=== PATIENT | male | born 1945 | race Caucasian/White ===

== ENCOUNTER 2023-05-02 08:59 | Inpatient (IN) | payer MEDICARE, BC ==
[2023-05-02] MEDS ORDERED: SODIUM CHLORIDE 0.9% 1,000 ML IV STA (09:23)
[2023-05-02] MEDS ORDERED: KETOROLAC 15 MG/ML 1 ML VIAL IVP STA (09:23)
[2023-05-02] MEDS ORDERED: MORPHINE SULFATE 4 MG/ML SYRINGE IVP STA ×2 (09:24→11:59)
[2023-05-02 09:26] VITALS: PULSE 60
--- NOTE | 2023-05-02 09:30 | ED ---
Abdominal Pain HPI - General Chief Complaint: Abdominal Pain Stated Complaint: abd pain Time Seen by Provider: 05/02/23 09:07 Source: patient, EMS, RN notes reviewed Mode of arrival: EMS Limitations: no limitations - History of Present Illness Initial Comments: This is an 78-year-old male who presents to the emergency department for abdominal pain. States that last night he went into a coughing fit and noticed a large bulge in his abdomen, particularly the right upper quadrant area. The pain has since persisted, and he states that he is unable to bear it anymore. Denies any history of abdominal surgeries or hernias in the past. He has had mild nausea but no vomiting. He is still coughing, and he states that this has been present for 1.5 weeks. Denies any chest pain or shortness of breath. He is still passing gas and had a small bowel movement this morning. MD Complaint: abdominal pain - Related Data Home Medications Medication Instructions Recorded Confirmed Multivitamins, Thera [Multivitamin 1 tab PO HS 05/02/23 05/02/23 (formulary)] Rivaroxaban [Xarelto] 20 mg PO HS 05/02/23 05/02/23 Allergies Allergy/AdvReac Type Severity Reaction Status Date / Time No Known Allergies Allergy Verified 05/02/23 12:40 Review of Systems ROS Statement: Those systems with pertinent positive or pertinent negative responses have been documented in the HPI. ROS Other: All systems not noted in ROS Statement are negative. Past Medical History Past Medical History: Atrial Fibrillation, Diabetes Mellitus History of Any Multi-Drug Resistant Organisms: None Reported Past Surgical History: Heart Catheterization With Stent, Joint Replacement, Pacemaker Additional Past Surgical History / Comment(s): bilateral knee replacements Past Psychological History: No Psychological Hx Reported Smoking Status: Never smoker Past Alcohol Use History: Occasional Past Drug Use History: None Reported General Exam Limitations: no limitations General appearance: alert, in no apparent distress Head exam: Present: atraumatic, normocephalic, normal inspection Respiratory exam: Present: normal lung sounds bilaterally. Absent: respiratory distress, wheezes, rales, rhonchi, stridor Cardiovascular Exam: Present: regular rate, normal rhythm, normal heart sounds. Absent: systolic murmur, diastolic murmur, rubs, gallop, clicks GI/Abdominal exam: Present: other (Large bulge in the right upper quadrant with palpable tenderness. There is a small overlying area of ecchymosis.) Neurological exam: Present: alert, oriented X3, CN II-XII intact Psychiatric exam: Present: normal affect, normal mood Skin exam: Present: warm, dry, intact, normal color. Absent: rash Course Vital Signs 05/02/23 05/02/23 05/02/23 09:04 11:48 13:50 Temperature 98.3 F Pulse Rate 60 60 60 Respiratory 20 20 18 Rate Blood Pressure 125/91 159/77 151/79 O2 Sat by Pulse 98 97 100 Oximetry 05/02/23 14:30 Temperature Pulse Rate Respiratory Rate Blood Pressure O2 Sat by Pulse 100 Oximetry Medical Decision Making - Medical Decision Making This is an 78-year-old male who presents to the emergency department for a bdominal pain. Was pt. sent in by a medical professional or institution? @ -No Did you speak to anyone other than the patient for history? @ -No Did you review nursing and triage notes? @ -Yes, and I agree, it is accurate with regards to the patient's symptoms. Were old charts reviewed? @ -No Differential Diagnosis? @ -Differential Abdominal Pain Men: Appendicitis, cholecystitis, diverticulosis, ischemic bowel, pancreatitis, hepatitis, UTI, gastroenteritis, AAA, incarcerated hernia, bowel obstruction, constipation, inflammatory bowel, hepatitis, peptic ulcer disease, splenic infarction, perforated viscus, testicular torsion, this is not meant to be an all-inclusive list EKG interpreted by me (3pts min.)? @ -EKG interpreted by me demonstrating the following: Electronic ventricular pacemaker. Ventricular rate 61 beats per minute, QRS duration 169 ms, QTC 461 ms. X-rays interpreted by me (1pt min.)? @ -Chest x-ray obtained. My interpretation identifies bilateral bibasilar infiltrates. CT interpreted by me (1pt min.)? @ -CT scan of the abdomen and pelvis obtained. My interpretation identifies a rectus sheath hematoma. U/S interpreted by me (1pt. min.)? @ -Not obtained What testing was considered but not performed? (CT, X-rays, U/S, labs)? Why? @ -None What meds were considered but not given? Why? @ -None Did you discuss the management of the patient with other professionals? @ -Yes, Dr. Ramey, general surgery, who advised admission to medicine with surgery consult and plan for observation at this time regarding the rectus sheath hematoma. Dr. Nicole accepts the patient for admission to medicine. Did you reconcile home meds? @ -No Was smoking cessation discussed for >3mins.? @ -No Was critical care preformed (if so, how long)? @ -No Were there social determinants of health that impacted care today? How? (Homelessness, low income, unemployed, alcoholism, drug addiction, t ransportation, low edu. Level, literacy, decrease access to med. care, care home, rehab)? @ -No Was there de-escalation of care discussed even if they declined? (Discuss DNR or withdrawal of care, Hospice)? @ -No What co-morbidities impacted this encounter? (DM, HTN, Smoking, COPD, CAD, Cancer, CVA, Hep., AIDS, mental health diagnosis, sleep apnea, morbid obesity)? @ -None Was patient admitted / discharged? @ -Admitted. Lab work obtained revealing leukocytosis. He was also found to have hyperkalemia with potassium of 5.5. Chest x-ray obtained revealing bilateral bibasilar opacities concerning for pneumonia. They also noted concern for aspiration. Covid, influenza, and RSV testing were negative. Computed tomography scan of the abdomen and pelvis obtained revealing an intramuscular hematoma in the superior right abdominal rectus with a small focus of active contrast extravasation suggested within. Patient does take Xarelto for a-fib. He did also have some other incidental findings such as a mildly distended bladder and enlarged prostate gland. The rectus sheath hematoma was discussed with Dr. Ramey, general surgery, who advised admission to medicine with surgery on consult for observation. He was also started on the pneumonia protocol with Ceftriaxone and Azithromycin. Flagyl was also added due to the concern for aspiration based on the x-ray readings. Patient admitted to medicine for rectus sheath hematoma and bilateral pneumonia. Undiagnosed new problem with uncertain prognosis? @ -None Drug Therapy requiring intensive monitoring for toxicity (Heparin, Nitro, Insulin, Cardizem)? @ -None Were any procedures done? @ -None Diagnosis/symptom? @ -Rectus sheath hematoma, bilateral pneumonia Acute, or Chronic, or Acute on Chronic? @ -Acute Uncomplicated (without systemic symptoms) or Complicated (systemic symptoms)? @ -Complicated Side effects of treatment? @ -None Exacerbation, Progression, or Severe Exacerbation] @ -Not applicable Poses a threat to life or bodily function? @ -Yes This case was discussed in detail with the attending ED physician, Dr. Read. Presentation, findings, and treatment plan discussed in detail as well. - Lab Data Result diagrams: 05/02/23 09:34 05/02/23 09:34 Lab Results 05/02/23 05/02/23 05/02/23 Range/Units 09:34 09:34 09:34 WBC 11.5 H (3.8-10.6) k/uL RBC 3.67 L (4.30-5.90) m/uL Hgb 12.1 L (13.0-17.5) gm/dL Hct 37.2 L (39.0-53.0) % MCV 101.5 H (80.0-100.0) fL MCH 33.1 (25.0-35.0) pg MCHC 32.6 (31.0-37.0) g/dL RDW 13.1 (11.5-15.5) % Plt Count 212 (150-450) k/uL MPV 9.2 Neutrophils % 93 % Lymphocytes % 3 % Monocytes % 3 % Eosinophils % 0 % Basophils % 0 % Neutrophils # 10.7 H (1.3-7.7) k/uL Lymphocytes # 0.4 L (1.0-4.8) k/uL Monocytes # 0.3 (0-1.0) k/uL Eosinophils # 0.0 (0-0.7) k/uL Basophils # 0.0 (0-0.2) k/uL Macrocytosis Slight PT (10.0-12.5) sec INR (<1.2) APTT (22.0-30.0) sec Sodium 135 L (137-145) mmol/L Potassium 5.5 H (3.5-5.1) mmol/L Chloride 99 (98-107) mmol/L Carbon Dioxide 27 (22-30) mmol/L Anion Gap 9 mmol/L BUN 28 H (9-20) mg/dL Creatinine 1.12 (0.66-1.25) mg/dL Est GFR (CKD-EPI)AfAm 72 (>60 ml/min/1.73 sqM) Est GFR (CKD-EPI)NonAf 62 (>60 ml/min/1.73 sqM) Glucose 360 H (74-99) mg/dL Plasma Lactic Acid Elliot 1.5 (0.7-2.0) mmol/L Calcium 9.0 (8.4-10.2) mg/dL Total Bilirubin 0.9 (0.2-1.3) mg/dL AST 28 (17-59) U/L ALT 22 (4-49) U/L Alkaline Phosphatase 95 (38-126) U/L Total Protein 6.5 (6.3-8.2) g/dL Albumin 3.6 (3.5-5.0) g/dL Amylase 45 (30-110) U/L Lipase 36 (23-300) U/L Influenza Type A (PCR) (Not Detectd) Influenza Type B (PCR) (Not Detectd) RSV (PCR) (Not Detectd) SARS-CoV-2 (PCR) (Not Detectd) 05/02/23 05/02/23 Range/Units 09:34 12:44 WBC (3.8-10.6) k/uL RBC (4.30-5.90) m/uL Hgb (13.0-17.5) gm/dL Hct (39.0-53.0) % MCV (80.0-100.0) fL MCH (25.0-35.0) pg MCHC (31.0-37.0) g/dL RDW (11.5-15.5) % Plt Count (150-450) k/uL MPV Neutrophils % % Lymphocytes % % Monocytes % % Eosinophils % % Basophils % % Neutrophils # (1.3-7.7) k/uL Lymphocytes # (1.0-4.8) k/uL Monocytes # (0-1.0) k/uL Eosinophils # (0-0.7) k/uL Basophils # (0-0.2) k/uL Macrocytosis PT 13.0 H (10.0-12.5) sec INR 1.2 H (<1.2) APTT 34.4 H (22.0-30.0) sec Sodium (137-145) mmol/L Potassium (3.5-5.1) mmol/L Chloride (98-107) mmol/L Carbon Dioxide (22-30) mmol/L Anion Gap mmol/L BUN (9-20) mg/dL Creatinine (0.66-1.25) mg/dL Est GFR (CKD-EPI)AfAm (>60 ml/min/1.73 sqM) Est GFR (CKD-EPI)NonAf (>60 ml/min/1.73 sqM) Glucose (74-99) mg/dL Plasma Lactic Acid Elliot (0.7-2.0) mmol/L Calcium (8.4-10.2) mg/dL Total Bilirubin (0.2-1.3) mg/dL AST (17-59) U/L ALT (4-49) U/L Alkaline Phosphatase (38-126) U/L Total Protein (6.3-8.2) g/dL Albumin (3.5-5.0) g/dL Amylase (30-110) U/L Lipase (23-300) U/L Influenza Type A (PCR) Not Detected (Not Detectd) Influenza Type B (PCR) Not Detected (Not Detectd) RSV (PCR) Not Detected (Not Detectd) SARS-CoV-2 (PCR) Not Detected (Not Detectd) - Radiology Data Radiology results: report reviewed, image reviewed Disposition Clinical Impression: Rectus sheath hematoma, Pneumonia Disposition: ADMITTED IP TO THIS HOSP
[2023-05-02 10:14] LABS: Basophils % (A) 0 %; Eosinophils % (A) 0 %; HCT 37.2 % (39.0-53.0); HGB 12.1 gm/dL (13.0-17.5); Lymphocytes # (A) 0.4 k/uL (1.0-4.8); Lymphocytes % (A) 3 %; MCH 33.1 pg (25.0-35.0); MCHC 32.6 g/dL (31.0-37.0); MCV 101.5 fL (80.0-100.0); Macrocytosis Slight; Mean Platelet Volume 9.2; Monocytes # (A) 0.3 k/uL (0-1.0); Monocytes % (A) 3 %; Neutrophils # (A) 10.7 k/uL (1.3-7.7); Neutrophils % (A) 93 %; Platelet Count 212 k/uL (150-450); RBC 3.67 m/uL (4.30-5.90); RDW 13.1 % (11.5-15.5); WBC 11.5 k/uL (3.8-10.6)
[2023-05-02 10:28] LABS: ALT 22 U/L (4-49); AST 28 U/L (17-59); African American GFR (CKD) 72 (>60 ml/min/1.73 sqM); Albumin 3.6 g/dL (3.5-5.0); Alkaline Phosphatase 95 U/L (38-126); Amylase 45 U/L (30-110); Anion Gap 9 mmol/L; Blood Urea Nitrogen 28 mg/dL (9-20); Carbon Dioxide 27 mmol/L (22-30); Chloride 99 mmol/L (98-107); Glucose 360 mg/dL (74-99); Lipase 36 U/L (23-300); Non-African American GFR(CKD) 62 (>60 ml/min/1.73 sqM); Potassium 5.5 mmol/L (3.5-5.1); Sodium 135 mmol/L (137-145); Total Bilirubin 0.9 mg/dL (0.2-1.3); Total Protein 6.5 g/dL (6.3-8.2)
--- NOTE | 2023-05-02 12:04 | CT ---
EXAMINATION TYPE: CT abdomen pelvis w con CT DLP: 1464.9 mGycm, Automated exposure control for dose reduction was used. DATE OF EXAM: 05/02/2023 11:09 AM COMPARISON: CLINICAL INDICATION:Male, 78 years old with history of abdominal pain and distention; RUQ PAIN H/O HE RNIA TECHNIQUE: Axial CT of the abdomen and pelvis. Sagittal and coronal reformats were created on a [employer] workstation. Contrast used:100 mL of Isovue 300 with IV Contrast, (none if empty) Oral contrast used: without Oral Contrast (none if empty) FINDINGS: LOWER CHEST: Moderate bibasilar scarring or subsegmental atelectasis. Heart appears mildly enlarged w ith moderate coronary arterial calcifications and/or stents. Distal end of pacemaker leads. Trace per icardial fluid. Partially seen mild bilateral gynecomastia. ABDOMEN LIVER: Unremarkable GALLBLADDER AND BILE DUCTS: Contracted and unremarkable. No biliary dilatation is seen. PANCREAS: Moderate generalized fatty atrophy without acute finding SPLEEN: Unremarkable. ADRENAL GLANDS: Thickened and small nodular appearance of the adrenals, could be due to hyperplasia a nd/or adenomatoid changes.. KIDNEYS AND URETERS: Mild bilateral perinephric stranding. Kidneys enhance symmetrically. Small cyst in the superior pole right kidney. Somewhat prominent bilateral extrarenal pelves without dilated ure ters seen. PELVIS BLADDER: Mildly distended with indentation on its base by enlarged prostate gland. There are some sma ll nodular densities seen along the dome of the bladder incompletely evaluated but may be diverticula . As seen on sagittal imaging, the wall of the bladder, especially superiorly and posteriorly, appear s mildly thickened. REPRODUCTIVE: Prostate appears enlarged measuring 5.8 cm transverse with multiple coarse parenchymal calcifications. ABDOMEN & PELVIS STOMACH AND BOWEL: Stomach and small bowel are nondistended, no evidence of obstruction. Appendix i s not identified with certainty, however there is no inflammatory process seen in the RLQ. Moderate s tool and gas throughout the colon. Multiple colonic diverticula without evidence of diverticulitis. PERITONEUM/RETROPERITONEUM: No evidence of pneumoperitoneum or free fluid. VASCULATURE: Mild atherosclerotic calcifications are present throughout the abdominal aorta and its b ranches. No evidence of aortic aneurysm. Portal veins are enhancing. Splenic vein is patent. LYMPH NODES: No gross evidence for lymphadenopathy. SOFT TISSUE/ABDOMINAL WALL: Moderate right and [id number] left fat-containing inguinal hernias . In the right upper abdomen anteriorly there is a spindle-shaped mass like density within the abdomi nal rectus on the right, superiorly and laterally. This measures about 8.7 x 4.7 cm maximum axially, and extends about 11.9 cm craniocaudally. While most of this is intermediate to low attenuation, ther e are small areas of increased attenuation in its central portion concerning for active extravasation . MUSCULOSKELETAL: No acute osseous abnormalities. Moderate degenerative changes of the spine with mil d mid lumbar scoliosis. There is a 10 mm anterolisthesis L4 on L5, appears degenerative. There are mo derate canal and bilateral foraminal stenoses at this level, at L3-L4, and L2-L3. IMPRESSION: 1. Intramuscular hematoma in the superior right abdominal rectus, with small foci of active contrast extravasation suggested within. 2. Enlarged prostate gland, as above. Clinical and PSA correlation recommended. 3. Bladder findings may be secondary to the enlarged prostate, however cystitis or neoplasm would be additional considerations.
--- NOTE | 2023-05-02 12:43 | XR ---
EXAMINATION TYPE: XR chest 2V DATE OF EXAM: 05/02/2023 12:37 PM CLINICAL INDICATION:Male, 78 years old with history of Cough; COMPARISON: Chest radiographs from 05/02/2023. TECHNIQUE: XR chest 2V Frontal and lateral views of the chest. FINDINGS: Lungs/Pleura: Left lower lung opacities project over the heart and over the spine. Additionally right lower lung airspace opacities are present. There is no evidence of pleural effusion, or pneumothorax . Pulmonary vascularity: Unremarkable. Heart/mediastinum: Cardiomediastinal silhouette is unremarkable. Single-lead cardiac conduction devic e overlying the left hemithorax with lead projecting over the right ventricle. Musculoskeletal: No acute osseous pathology. IMPRESSION: Bibasilar airspace opacities correlate for pneumonia. Correlate for aspiration.
[2023-05-02] MEDS ORDERED: PNEUMONIA PROTOCOL UTILIZED 1 EACH MISC PO PRN (12:56)
[2023-05-02] MEDS ORDERED: AZITHROMYCIN 500 MG in SODIUM CHLORIDE 0.9% 250 ML IVPB STA (12:56)
[2023-05-02] MEDS ORDERED: BENZONATATE 100 MG CAP PO STA (12:59)
[2023-05-02 13:13] LABS: INR 1.2 (<1.2); Partial Thromboplastin Time 34.4 sec (22.0-30.0)
[2023-05-02] MEDS ORDERED: MORPHINE SULFATE 4 MG/ML SYRINGE IV PRN (13:47)
[2023-05-02] MEDS ORDERED: ONDANSETRON 4 MG/2 ML VIAL IVP PRN (13:47)
[2023-05-02] MEDS ORDERED: ACETAMINOPHEN TAB 325 MG TAB PO PRN (13:47)
[2023-05-02] MEDS ORDERED: HYDROcodone/APAP 5-325MG 1 EACH TAB PO PRN (13:47)
[2023-05-02] MEDS ORDERED: NALOXONE 0.4 MG/ML 1 ML VIAL IV PRN (13:47)
[2023-05-02] MEDS: SODIUM CHLORIDE 0.9% 1,000 ML IV SCH (13:59)
--- NOTE | 2023-05-02 14:33 | P.HPIM ---
History of Present Illness H&P Date: 05/02/23 History of Presenting Illness: Patient is a very pleasant 78-year-old male with a past medical history of CAD with permanent pacemaker, diabetes mellitus and atrial fibrillation on anticoagulation with Xarelto. He presented to the emergency department with a chief complaint of abdominal pain. Patient reports he has had a cough for just over a week now and reports last night having a coughing fit and feeling a sudden pop in the right side of his abdomen quickly followed by a large bulge. Patient reports since this incident he has noticed worsening distention and pain in his abdomen became to the emergency department for evaluation. Patient positive for productive cough, nausea, and abdominal pain. He denies any episodes of fevers, chills, diaphoresis, chest pain, palpitations, shortness of breath, vomiting, or experiencing any numbness/tingling/weakness/swelling in his extremities. He underwent full evaluation in the emergency department. Vital signs upon arrival show blood pressure 125/91, heart rate 60, respiratory rate 20, temperature 98.3F, SpO2 of 98% on room air. EKG completed showing a ventricular paced rhythm at 61 bpm. Chest x-ray completed showing bibasilar airspace opacities consistent with pneumonia. CT abdomen and pelvis showing intramuscular hematoma in the superior right abdominal rectus with small foci of active contrast extravasation, enlarged prostate gland, moderate right and small to moderate left fat-containing inguinal hernias, moderate stool burden, and small nodular densities along the dome of the bladder possibly diverticula however cannot rule out underlying process and recommend outpatient follow-up with further testing by urologist. Labs completed and reviewed. CBC showing leukocytosis with WBC count of 11.5 and microcytic anemia with hemoglobin of 12.1. Coagulation profile showing PT of 13.0, INR 1.2, and PTT of 34.4. BMP showing mild hyperkalemia with potassium of 5.5 and mild prerenal azotemia with BUN of 28, hyperglycemia with glucose of 360. Liver profile unremarkable. Amylase and lipase normal findings. Influenza A, influenza B, RSV, and Covid PCR were negative. Patient was started on IV antibiotics with azithromycin and Rocephin for treatment of community-acquired pneumonia and admitted under our services with consultation to general surgery. Review of systems: Pertinent positives and negatives as discussed in HPI, a complete review of systems was performed and all other systems are negative. Physical exam: Vital signs reviewed and stable. General: Nontoxic, no distress and appears stated age. Derm: Skin warm and dry, normal coloration for ethnicity. Head: Atraumatic, normocephalic and symmetric. Eyes: EOMs intact, no lid lag, and anicteric sclera Mouth: no lip lesions, mucus membranes moist Cardiovascular: regular rate and rhythm with normal S1S2, systolic murmur, positive posterior tibial pulses bilaterally, and cap refill < 2 seconds. Lungs: Respirations even, regular, and unlabored on room air. Lungs CTA bilaterally, no rhonchi, no rales, no wheezing, and no accessory muscle usage. Abdominal: Abdomen is firm distended, pain upon palpation in right upper quadrant and epigastric region. Patient with small area of ecchymosis in right upper quadrant Ext: ROM intact. No gross muscle atrophy, no edema, no contractures Neuro: Speech clear, face symmetrical and CN II-XII grossly intact with no noted focal neuro deficits Psych: Alert and oriented to person, place, time, and situation. Appropriate and pleasant affect. Assessment and Plan of Care: Community-acquired pneumonia Leukocytosis -Telemetry monitoring. -Monitor Pulse-oximetry -Duonebs scheduled four times daily and as needed for SOB and/or wheezing -Incentive Spirometry -Robitussin 200 mg every 6 hours as needed for cough -Antibiotics: Azithromycin 500 mg daily and Rocephin 2 g daily -Sputum culture and Legionella antigen Rectus sheath hematoma Microcytic anemia, unclear baseline hemoglobin is no previous labs available for comparison Consult placed to general surgeon, appreciate recommendations. Hold anticoagulant, Xarelto until cleared by general surgery team to resume. Prostatomegaly Small nodular densities reported on the dome of bladder CT revealing enlarged prostate with small nodular densities along the dome of the bladder, possibly diverticula however cannot rule out underlying process. Recommend patient follow-up outpatient with a urologist for further testing. History of CAD with permanent pacemaker Paroxysmal atrial fibrillation Hold anticoagulant, Xarelto until cleared by general surgery team to resume. Diabetes mellitus with hyperglycemia Blood glucose 360. Patient currently not on any medications for treatment of his diabetes mellitus. Patient placed on glycemic protocol with NovoLog sliding scale in order placed for hemoglobin A1c. Hyperkalemia, mild Potassium 5.5. Order placed for calcium gluconate 2 g IVPB. Reviewed EKG showing a ventricular paced rhythm. Patient to remain on telemetry monitoring Order placed for repeat potassium later this evening and again tomorrow morning. Data and imaging reviewed: Please see above as documented in HPI. The patient is admitted with an anticipated greater than 2 midnight stay for evaluation of rectus sheath hematoma and community-acquired pneumonia CODE STATUS: Full code DVT prophylaxis: SCDs, Xarelto held until cleared by general surgery team to resume. Anticipated discharge date: Clinical course to determine Anticipated discharge place: Clinical course to determine Patient was seen independently by Nurse Practitioner. This document was prepared using [employer] dictation software. Please allow for errors in a operator while rare they do occur. Levar Ward NP rendered care for this patient independently, reviewed the findings and plan as documented in the note above. I did not physically speak with or examine the patient on this date. Past Medical History Past Medical History: Atrial Fibrillation, Diabetes Mellitus History of Any Multi-Drug Resistant Organisms: None Reported Past Surgical History: Heart Catheterization With Stent, Joint Replacement, Pacemaker Additional Past Surgical History / Comment(s): bilateral knee replacements Past Psychological History: No Psychological Hx Reported Smoking Status: Never smoker Past Alcohol Use History: Occasional Past Drug Use History: None Reported Medications and Allergies Home Medications Medication Instructions Recorded Confirmed Type Multivitamins, Thera [Multivitamin 1 tab PO HS 05/02/23 05/02/23 History (formulary)] Azithromycin [Zithromax] 500 mg PO DAILY #1 tab 05/03/23 Rx Allergies Allergy/AdvReac Type Severity Reaction Status Date / Time No Known Allergies Allergy Verified 05/02/23 12:40 Physical Exam Vitals: Vital Signs Temp Pulse Resp BP Pulse Ox 05/02/23 13:50 60 18 151/79 100 05/02/23 11:48 60 20 159/77 97 05/02/23 09:04 98.3 F 60 20 125/91 98 Intake and Output 05/01/23 05/02/23 05/02/23 22:59 06:59 14:59 Other: Weight 106.594 kg Results CBC & Chem 7: 05/03/23 07:55 05/03/23 07:55 Labs: Abnormal Lab Results - Last 24 Hours (Table) 05/02/23 05/02/23 05/02/23 Range/Units 09:34 09:34 12:44 WBC 11.5 H (3.8-10.6) k/uL RBC 3.67 L (4.30-5.90) m/uL Hgb 12.1 L (13.0-17.5) gm/dL Hct 37.2 L (39.0-53.0) % MCV 101.5 H (80.0-100.0) fL Neutrophils # 10.7 H (1.3-7.7) k/uL Lymphocytes # 0.4 L (1.0-4.8) k/uL PT 13.0 H (10.0-12.5) sec INR 1.2 H (<1.2) APTT 34.4 H (22.0-30.0) sec Sodium 135 L (137-145) mmol/L Potassium 5.5 H (3.5-5.1) mmol/L BUN 28 H (9-20) mg/dL Glucose 360 H (74-99) mg/dL
--- NOTE | 2023-05-02 15:08 | P.GSCN ---
History of Present Illness Consult date: 05/02/23 History of present illness: CHIEF COMPLAINT: Abdominal pain HISTORY OF PRESENT ILLNESS: This is a 78-year-old male who presented to the hospital with complaints of right-sided abdominal pain. Patient reports that he has been having a cough for about a week and a half. Last night he had a strong cough and after the cough he noted right-sided abdominal pain with a bulge on that right side. Patient does take Xarelto for his A. fib at home. Patient is now having some external bruising noted also on that right side of the abdomen. Hemoglobin stable at 12.1 computed tomography scan had shown evidence of intramuscular hematoma in the superior right abdominal rectus small foci of active contrast extravasation suggested within. PAST MEDICAL HISTORY: Atrial Fibrillation, Diabetes Mellitus PAST SURGICAL HISTORY: Heart Catheterization With Stent, Joint Replacement, Pacemaker MEDICATIONS: See below ALLERGIES: See below SOCIAL HISTORY: No illicit drug use. REVIEW OF SYSTEMS: CONSTITUTIONAL: Denies fever or chills. HEENT: Denies blurred vision, vision changes, or eye pain. Denies hemoptysis CARDIOVASCULAR: Denies chest pain or pressure. RESPIRATORY: No shortness of breath. GASTROINTESTINAL: See HPI for pertinent findings HEMATOLOGIC: Denies bleeding disorders. GENITOURINARY: Denies any blood in urine or increased urinary frequency. SKIN: Denies pruitis. Denies rash. PHYSICAL EXAM: VITAL SIGNS: Reviewed GENERAL: Well-developed in no acute distress. ABDOMEN: Soft. Nondistended. Right-sided rectus sheath hematoma that is tender with palpation and with small amount of ecchymosis NEUROLOGIC: Alert and oriented. Cranial nerves II through XII grossly intact. LABORATORY DATA: WBC 11.5 HGB 12.1 plt 212 INR 1.2 Sodium 135 potassium 5.5 and creatinine 1.12 Covid, RSV and influenza not detected IMAGING: Computed tomography scan abdomen and pelvis intramuscular hematoma in the superior right abdominal rectus with small foci of active contrast extravasation suggested within. Enlarged prostate gland. Bladder findings may be secondary to enlarged prostate however cystitis or neoplasm would be additional consideration ASSESSMENT: 1. Right abdominal rectus sheath hematoma 2. Atrial fibrillation on Xarelto 3. Possible Pneumonia with coughing PLAN: -Continue to observe -Continue to monitor hemoglobin -Hold Xarelto -Continue supportive care Thank you for this consultation Physician Pre Sales Architect note has been reviewed by physician. Signing provider agrees with the documented findings, assessment, and plan of care. Past Medical History Past Medical History: Atrial Fibrillation, Diabetes Mellitus History of Any Multi-Drug Resistant Organisms: None Reported Past Surgical History: Heart Catheterization With Stent, Joint Replacement, Pacemaker Additional Past Surgical History / Comment(s): bilateral knee replacements Past Psychological History: No Psychological Hx Reported Smoking Status: Never smoker Past Alcohol Use History: Occasional Past Drug Use History: None Reported Medications and Allergies Home Medications Medication Instructions Recorded Confirmed Type Multivitamins, Thera [Multivitamin 1 tab PO HS 05/02/23 05/02/23 History (formulary)] Rivaroxaban [Xarelto] 20 mg PO HS 05/02/23 05/02/23 History Allergies Allergy/AdvReac Type Severity Reaction Status Date / Time No Known Allergies Allergy Verified 05/02/23 12:40 Surgical - Exam Vital Signs Temp Pulse Resp BP Pulse Ox 98.3 F 60 20 125/91 98 05/02/23 09:04 05/02/23 09:04 05/02/23 09:04 05/02/23 09:04 05/02/23 09:04 Results - Labs 05/02/23 09:34 05/02/23 09:34 Abnormal Lab Results - Last 24 Hours (Table) 05/02/23 05/02/23 05/02/23 Range/Units 09:34 09:34 12:44 WBC 11.5 H (3.8-10.6) k/uL RBC 3.67 L (4.30-5.90) m/uL Hgb 12.1 L (13.0-17.5) gm/dL Hct 37.2 L (39.0-53.0) % MCV 101.5 H (80.0-100.0) fL Neutrophils # 10.7 H (1.3-7.7) k/uL Lymphocytes # 0.4 L (1.0-4.8) k/uL PT 13.0 H (10.0-12.5) sec INR 1.2 H (<1.2) APTT 34.4 H (22.0-30.0) sec Sodium 135 L (137-145) mmol/L Potassium 5.5 H (3.5-5.1) mmol/L BUN 28 H (9-20) mg/dL Glucose 360 H (74-99) mg/dL Diabetes panel 05/02/23 Range/Units 09:34 Sodium 135 L (137-145) mmol/L Potassium 5.5 H (3.5-5.1) mmol/L Chloride 99 (98-107) mmol/L Carbon Dioxide 27 (22-30) mmol/L BUN 28 H (9-20) mg/dL Creatinine 1.12 (0.66-1.25) mg/dL Glucose 360 H (74-99) mg/dL Calcium 9.0 (8.4-10.2) mg/dL AST 28 (17-59) U/L ALT 22 (4-49) U/L Alkaline Phosphatase 95 (38-126) U/L Total Protein 6.5 (6.3-8.2) g/dL Albumin 3.6 (3.5-5.0) g/dL Calcium panel 05/02/23 Range/Units 09:34 Calcium 9.0 (8.4-10.2) mg/dL Albumin 3.6 (3.5-5.0) g/dL Pituitary panel 05/02/23 Range/Units 09:34 Sodium 135 L (137-145) mmol/L Potassium 5.5 H (3.5-5.1) mmol/L Chloride 99 (98-107) mmol/L Carbon Dioxide 27 (22-30) mmol/L BUN 28 H (9-20) mg/dL Creatinine 1.12 (0.66-1.25) mg/dL Glucose 360 H (74-99) mg/dL Calcium 9.0 (8.4-10.2) mg/dL Adrenal panel 05/02/23 Range/Units 09:34 Sodium 135 L (137-145) mmol/L Potassium 5.5 H (3.5-5.1) mmol/L Chloride 99 (98-107) mmol/L Carbon Dioxide 27 (22-30) mmol/L BUN 28 H (9-20) mg/dL Creatinine 1.12 (0.66-1.25) mg/dL Glucose 360 H (74-99) mg/dL Calcium 9.0 (8.4-10.2) mg/dL Total Bilirubin 0.9 (0.2-1.3) mg/dL AST 28 (17-59) U/L ALT 22 (4-49) U/L Alkaline Phosphatase 95 (38-126) U/L Total Protein 6.5 (6.3-8.2) g/dL Albumin 3.6 (3.5-5.0) g/dL
[2023-05-02] MEDS: metroNIDAZOLE-NS PMX 500 MG in SALINE 1 100ML.BAG IVPB SCH (15:28)
[2023-05-02] MEDS ORDERED: DEXTROSE 50% SYRINGE 50 ML IVP PRN ×2 (16:01)
[2023-05-02] MEDS ORDERED: IPRATROPIUM-ALBUTEROL 3 ML NEB INHALATION PRN (16:17)
[2023-05-02] MEDS ORDERED: guaiFENesin SYRUP 100MG/5ML 200 MG/10 ML CUP PO PRN (16:18)
[2023-05-02] MEDS ORDERED: CALCIUM GLUCONATE IN NACL 2 GM in SALINE 1 100ML.BAG IVPB ONE (17:00)
[2023-05-02 17:11] LABS: Glucose,Whole Blood 340 mg/dL (70-110)
[2023-05-02] MEDS: INSULIN ASPART (NovoLOG) 100 UNIT/ML VIAL SQ SCH ×2 (17:35→21:24)
[2023-05-02 19:43] LABS: HCT 33.3 % (39.0-53.0); MCH 34.2 pg (25.0-35.0); MCHC 33.1 g/dL (31.0-37.0); MCV 103.5 fL (80.0-100.0); Macrocytosis Slight; Mean Platelet Volume 7.8; Platelet Count 234 k/uL (150-450); RBC 3.22 m/uL (4.30-5.90); RDW 12.8 % (11.5-15.5); WBC 10.9 k/uL (3.8-10.6)
[2023-05-02 19:58] LABS: African American GFR (CKD) 61 (>60 ml/min/1.73 sqM); Anion Gap 11 mmol/L; Blood Urea Nitrogen 30 mg/dL (9-20); Calcium 9.1 mg/dL (8.4-10.2); Carbon Dioxide 23 mmol/L (22-30); Chloride 98 mmol/L (98-107); Glucose 324 mg/dL (74-99); Non-African American GFR(CKD) 53 (>60 ml/min/1.73 sqM); Potassium 4.7 mmol/L (3.5-5.1); Sodium 132 mmol/L (137-145)
[2023-05-02 20:21] LABS: Glucose,Whole Blood 311 mg/dL (70-110)
[2023-05-02] MEDS: IPRATROPIUM-ALBUTEROL 3 ML NEB INHALATION SCH (20:40)
[2023-05-03] MEDS: metroNIDAZOLE-NS PMX 500 MG in SALINE 1 100ML.BAG IVPB SCH (00:04)
[2023-05-03 06:49] LABS: Glucose,Whole Blood 219 mg/dL (70-110)
[2023-05-03] MEDS: INSULIN ASPART (NovoLOG) 100 UNIT/ML VIAL SQ SCH ×2 (06:58→12:17)
[2023-05-03 08:05] VITALS: BP 128/67; RESP 16; TEMP 97.8
[2023-05-03 08:24] LABS: Basophils % (A) 0 %; Eosinophils % (A) 0 %; HCT 30.3 % (39.0-53.0); HGB 10.2 gm/dL (13.0-17.5); Lymphocytes # (A) 0.9 k/uL (1.0-4.8); Lymphocytes % (A) 8 %; MCH 34.2 pg (25.0-35.0); MCHC 33.7 g/dL (31.0-37.0); MCV 101.6 fL (80.0-100.0); Macrocytosis Slight; Mean Platelet Volume 7.7; Monocytes # (A) 0.5 k/uL (0-1.0); Monocytes % (A) 4 %; Neutrophils # (A) 9.4 k/uL (1.3-7.7); Neutrophils % (A) 87 %; Platelet Count 240 k/uL (150-450); RBC 2.99 m/uL (4.30-5.90); RDW 12.9 % (11.5-15.5); WBC 10.9 k/uL (3.8-10.6)
[2023-05-03 08:44] LABS: African American GFR (CKD) 65 (>60 ml/min/1.73 sqM); Anion Gap 8 mmol/L; Blood Urea Nitrogen 29 mg/dL (9-20); Calcium 8.8 mg/dL (8.4-10.2); Carbon Dioxide 26 mmol/L (22-30); Chloride 101 mmol/L (98-107); Glucose 181 mg/dL (74-99); Non-African American GFR(CKD) 56 (>60 ml/min/1.73 sqM); Potassium 4.9 mmol/L (3.5-5.1); Sodium 135 mmol/L (137-145)
[2023-05-03] MEDS: IPRATROPIUM-ALBUTEROL 3 ML NEB INHALATION SCH ×2 (08:55→11:56)
[2023-05-03] MEDS: SODIUM CHLORIDE 0.9% 1,000 ML IV SCH (08:57)
[2023-05-03] MEDS ORDERED: AZITHROMYCIN 500 MG TAB PO SCH (09:00)
--- NOTE | 2023-05-03 11:23 | P.PN ---
Subjective Progress Note Date: 05/03/23 Patient is a very pleasant 78-year-old male with a past medical history of CAD with permanent pacemaker, diabetes mellitus and atrial fibrillation on anticoagulation with Xarelto. He presented to the emergency department with a chief complaint of abdominal pain. Patient reports he has had a cough for just over a week now and reports last night having a coughing fit and feeling a sudden pop in the right side of his abdomen quickly followed by a large bulge. Patient reports since this incident he has noticed worsening distention and pain in his abdomen became to the emergency department for evaluation. Patient positive for productive cough, nausea, and abdominal pain. He denies any episodes of fevers, chills, diaphoresis, chest pain, palpitations, shortness of breath, vomiting, or experiencing any numbness/tingling/weakness/swelling in his extremities. He underwent full evaluation in the emergency department. Vital signs upon arrival show blood pressure 125/91, heart rate 60, respiratory rate 20, temperature 98.3F, SpO2 of 98% on room air. EKG completed showing a ventricular paced rhythm at 61 bpm. Chest x-ray completed showing bibasilar airspace opacities consistent with p neumonia. CT abdomen and pelvis showing intramuscular hematoma in the superior right abdominal rectus with small foci of active contrast extravasation, enlarged prostate gland, moderate right and small to moderate left fat-containing inguinal hernias, moderate stool burden, and small nodular densities along the dome of the bladder possibly diverticula however cannot rule out underlying process and recommend outpatient follow-up with further testing by urologist. CBC showing leukocytosis with WBC count of 11.5 and microcytic anemia with hemoglobin of 12.1. Coagulation profile showing PT of 13.0, INR 1.2, and PTT of 34.4. BMP showing mild hyperkalemia with potassium of 5.5 and mild prerenal azotemia with BUN of 28, hyperglycemia with glucose of 360. Liver profile unremarkable. Amylase and lipase normal findings. Influenza A, influenza B, RSV, and COVID PCR were negative. Patient was started on IV antibiotics with azithromycin and Rocephin for treatment of community-acquired pneumonia and admitted under our services with consultation to general surgery. Surgery recommended monitoring while holding Xarelto. 05/03 Patient was seen and examined. He reports no complaints. Abdominal pain significantly improved. No shortness of breath. POC glucose 311-340. CBC WBC 10.9, Hg 10.2, MCV 101.6. BMP Na 135, BUN 29, glu 181. General: non toxic, no distress, appears at stated age Derm: warm, dry Head: atraumatic, normocephalic, symmetric Eyes: EOMI, no lid lag, anicteric sclera Mouth: no lip lesion, mucus membranes moist Cardiovascular: S1S2 reg, no murmur Lungs: CTA bilateral, no rhonchi, no rales , no accessory muscle use Abdominal: soft, nontender to palpation, no guarding, no appreciable organomegaly, ecchymosis in right upper quadrant Ext: no gross muscle atrophy, no edema, no contractures Neuro: no focal neuro deficits Psych: Alert, oriented, appropriate affect Based on my assessment of this patient, this patient meets a high complexity level of care. Patient has an acute diagnosis of PNA with the finding of rectus sheath hematoma that poses a threat to life or bodily function. Community-acquired pneumonia: Rocephin 2g IV QD. Azithromycin 500 mg PO QD. Obtain Pro-esa. Telemetry monitoring. Sputum and BCx. Legionella Ag. Acute kidney injury: Improving. Received Toradol in the ED. NS at 75 cc/hr. Rectus sheath hematoma: Hold Xarelto. Would recommend minimum of 4 days. Surgery on board, discussed with Radha HAYNES, will discuss with Dr. Ramey regarding further recommendations. Macrocytic anemia: Unclear baseline hemoglobin is no previous labs available for comparison. Obtain B12, Folate. Prostatomegaly: Outpatient urology follow up. Small nodular densities reported on the dome of bladder: Outpatient urology follow up. History of CAD with permanent pacemaker Paroxysmal atrial fibrillation Diabetes mellitus with hyperglycemia: ISS. Accuchecks ACHS. Hypoglycemic precautions. Resolved: Mild hyperkalemia CODE STATUS: FULL CODE. DVT Prophylaxis: SCD GI Prophylaxis: Designated medical POA if patient is not able to make medical decisions for themselves: Anticipated discharge: Home. I have reviewed the following sap security consultant notes: Surgery note. I have reviewed the results of the following tests: CBC, BMP I have ordered the following tests: Pending: Procal, BCx, Sputum Cx, Legionella I have discussed the care of this patient with the following independent historian: I have independently interpreted the following test below: I have discussed the management of this patient with the following physician: Radha HAYNES as above. Objective - Vital Signs Vital signs: Vital Signs Temp 97.6 F 05/03/23 02:00 Pulse 60 05/03/23 02:00 Resp 18 05/03/23 02:00 BP 138/65 05/03/23 02:00 Pulse Ox 96 05/03/23 02:00 FiO2 Intake & Output 05/02/23 05/02/23 05/03/23 06:59 18:59 06:59 Intake Total 100 Balance 100 Weight 106.594 kg Intake: Intake, IV Titration 100 Amount Calcium Gluconate in NaCl 100 2 gm In Saline 1 100ml. bag @ 100 mls/hr IVPB ONCE ONE Rx#:[id number] Other: Voiding Method Toilet # Voids 1 2 - Labs CBC & Chem 7: 05/03/23 07:55 05/03/23 07:55 Labs: Abnormal Lab Results - Last 24 Hours (Table) 05/02/23 05/02/23 05/02/23 Range/Units 09:34 09:34 12:44 WBC 11.5 H (3.8-10.6) k/uL RBC 3.67 L (4.30-5.90) m/uL Hgb 12.1 L (13.0-17.5) gm/dL Hct 37.2 L (39.0-53.0) % MCV 101.5 H (80.0-100.0) fL Neutrophils # 10.7 H (1.3-7.7) k/uL Lymphocytes # 0.4 L (1.0-4.8) k/uL PT 13.0 H (10.0-12.5) sec INR 1.2 H (<1.2) APTT 34.4 H (22.0-30.0) sec Sodium 135 L (137-145) mmol/L Potassium 5.5 H (3.5-5.1) mmol/L BUN 28 H (9-20) mg/dL Creatinine (0.66-1.25) mg/dL Glucose 360 H (74-99) mg/dL POC Glucose (mg/dL) (70-110) mg/dL 05/02/23 05/02/23 05/02/23 Range/Units 17:10 18:33 18:33 WBC 10.9 H (3.8-10.6) k/uL RBC 3.22 L (4.30-5.90) m/uL Hgb 11.0 L (13.0-17.5) gm/dL Hct 33.3 L (39.0-53.0) % MCV 103.5 H (80.0-100.0) fL Neutrophils # (1.3-7.7) k/uL Lymphocytes # (1.0-4.8) k/uL PT (10.0-12.5) sec INR (<1.2) APTT (22.0-30.0) sec Sodium 132 L (137-145) mmol/L Potassium (3.5-5.1) mmol/L BUN 30 H (9-20) mg/dL Creatinine 1.27 H (0.66-1.25) mg/dL Glucose 324 H (74-99) mg/dL POC Glucose (mg/dL) 340 H (70-110) mg/dL 05/02/23 Range/Units 20:20 WBC (3.8-10.6) k/uL RBC (4.30-5.90) m/uL Hgb (13.0-17.5) gm/dL Hct (39.0-53.0) % MCV (80.0-100.0) fL Neutrophils # (1.3-7.7) k/uL Lymphocytes # (1.0-4.8) k/uL PT (10.0-12.5) sec INR (<1.2) APTT (22.0-30.0) sec Sodium (137-145) mmol/L Potassium (3.5-5.1) mmol/L BUN (9-20) mg/dL Creatinine (0.66-1.25) mg/dL Glucose (74-99) mg/dL POC Glucose (mg/dL) 311 H (70-110) mg/dL
[2023-05-03 11:31] LABS: Glucose,Whole Blood 241 mg/dL (70-110)
--- NOTE | 2023-05-03 13:14 | P.DS ---
Providers Date of admission: 05/02/23 13:47 Expected date of discharge: 05/03/23 Attending physician: Isabela Nicole DO Consults: 05/02/23 13:47 Consult Physician Urgent Consulting Provider: Donn Ramey Consult Reason/Comments: Rectus sheath hematoma Do you want consulting provider notified?: Already Contacted Primary care physician: Nasim Chaidez [facility] Course: Patient is a very pleasant 78-year-old male with a past medical history of CAD with permanent pacemaker, diabetes mellitus and atrial fibrillation on anticoagulation with Xarelto. He presented to the emergency department with a chief complaint of abdominal pain. Patient reports he has had a cough for just over a week now and reports last night having a coughing fit and feeling a sudden pop in the right side of his abdomen quickly followed by a large bulge. Patient reports since this incident he has noticed worsening distention and pain in his abdomen became to the emergency department for evaluation. Patient positive for productive cough, nausea, and abdominal pain. He denies any episodes of fevers, chills, diaphoresis, chest pain, palpitations, shortness of breath, vomiting, or experiencing any numbness/tingling/weakness/swelling in his extremities. He underwent full evaluation in the emergency department. Vital signs upon arrival show blood pressure 125/91, heart rate 60, respiratory rate 20, temperature 98.3F, SpO2 of 98% on room air. EKG completed showing a ventricular paced rhythm at 61 bpm. Chest x-ray completed showing bibasilar airspace opacities consistent with pneumonia. CT abdomen and pelvis showing intramuscular hematoma in the superior right abdominal rectus with small foci of active contrast extravasation, enlarged prostate gland, moderate right and small to moderate left fat-containing inguinal hernias, moderate stool burden, and small nodular densities along the dome of the bladder possibly diverticula however cannot rule out underlying process and recommend outpatient follow-up with further testing by urologist. CBC showing leukocytosis with WBC count of 11.5 and microcytic anemia with hemoglobin of 12.1. Coagulation profile showing PT of 13.0, INR 1.2, and PTT of 34.4. BMP showing mild hyperkalemia with potassium of 5.5 and mild prerenal azotemia with BUN of 28, hyperglycemia with glucose of 360. Liver profile unremarkable. Amylase and lipase normal findings. Influenza A, influenza B, RSV, and COVID PCR were negative. Patient was started on IV antibiotics with azithromycin and Rocephin for treatment of community-acquired pneumonia and admitted under our services with consultation to general surgery. Surgery recommended monitoring while holding Xarelto for atleast one month, cleared for discharge. Take Azithromycin for one more day to complete a total of 3 days antibiotics. 05/03 Patient was seen and examined. He reports no complaints. Abdominal pain significantly improved. No shortness of breath. POC glucose 311-340. CBC WBC 10.9, Hg 10.2, MCV 101.6. BMP Na 135, BUN 29, glu 181. General: non toxic, no distress, appears at stated age Derm: warm, dry Head: atraumatic, normocephalic, symmetric Eyes: EOMI, no lid lag, anicteric sclera Mouth: no lip lesion, mucus membranes moist Cardiovascular: S1S2 reg, no murmur Lungs: CTA bilateral, no rhonchi, no rales , no accessory muscle use Abdominal: soft, nontender to palpation, no guarding, no appreciable organomegaly, ecchymosis in right upper quadrant Ext: no gross muscle atrophy, no edema, no contractures Neuro: no focal neuro deficits Psych: Alert, oriented, appropriate affect Discharge Diagnosis: Community-acquired pneumonia Acute kidney injury Rectus sheath hematoma Macrocytic anemia Prostatomegaly Small nodular densities reported on the dome of bladder History of CAD with permanent pacemaker Paroxysmal atrial fibrillation Diabetes mellitus with hyperglycemia Resolved: Mild hyperkalemia This complex discharge took 35 minutes to complete. Patient Condition at Discharge: Stable Plan - Discharge Summary New Discharge Prescriptions: New Azithromycin [Zithromax] 500 mg PO DAILY #1 tab Continue Multivitamins, Thera [Multivitamin (formulary)] 1 tab PO HS Discontinued Rivaroxaban [Xarelto] 20 mg PO HS Discharge Medication List Multivitamins, Thera [Multivitamin (formulary)] 1 tab PO HS 05/02/23 [History] Azithromycin [Zithromax] 500 mg PO DAILY #1 tab 05/03/23 [Rx] Follow up Appointment(s)/Referral(s): Wilbur Meadows MD [STAFF PHYSICIAN] - 1 Week Nasim Biggs MD [Primary Care Provider] - 1-2 days Donn Ramey MD [STAFF PHYSICIAN] - 1 Week Activity/Diet/Wound Care/Special Instructions: Activity: As tolerated. Take breaks as needed. Diet: Heart healthy and carb consistent diet. Avoid salts, or foods with hidden salts such as canned or boxed foods and frozen dinners. Extra salt makes your heart work harder and traps the fluid in your body for longer. Special Instructions: Take all of your medications as directed and remember to keep all of your doctor's appointments and follow-up as needed. CT revealing enlarged prostate with small nodular densities along the dome of the bladder possibly presenting diverticula, however cannot rule out underlying process and recommend outpatient follow-up with further testing by urologist, Dr. Meadows. Hold Neal for one month. Follow up with Dr. Ramey within 1 week of discharge. Follow up with your Cylinder Press Operator at [place] within 1-2 weeks of discharge. Thank you for allowing us to participate in your care, it was truly a pleasure having you for our patient!!! Discharge Disposition: HOME SELF-CARE
--- NOTE | 2023-05-03 13:35 | P.PN ---
Subjective Progress Note Date: 05/03/23 CHIEF COMPLAINT: Rectus sheath hematoma HISTORY OF PRESENT ILLNESS: Surgical service following in regards to the rectus sheath hematoma. Patient did have a decrease in his hemoglobin from 11-10.2. The abdominal pain has resolved. And area of hematoma is decreasing. Patient seen and examined with Dr. morales PHYSICAL EXAM: VITAL SIGNS: Reviewed. GENERAL: Well-developed in no acute distress. ABDOMEN: Soft. Nondistended. Nontender. Right-sided hematoma decreasing in size. Area of ecchymosis no change ASSESSMENT: 1. Right abdominal rectus sheath hematoma likely secondary to patient's cough and being on blood thinners 2. Atrial fibrillation on Xarelto 3. Possible Pneumonia with coughing PLAN: -Patient can be discharged from surgical standpoint -Recommend staying off of the Xarelto or blood thinners for at least 1 month Physician Drop Hammer Pile Driver Operator note has been reviewed by physician. Signing provider agrees with the documented findings, assessment, and plan of care. Objective - Vital Signs Vital signs: Vital Signs Temp 97.8 F 05/03/23 07:59 Pulse 60 05/03/23 12:05 Resp 16 05/03/23 07:59 BP 128/67 05/03/23 07:59 Pulse Ox 96 05/03/23 07:59 FiO2 Intake & Output 05/02/23 05/03/23 05/03/23 18:59 06:59 18:59 Intake Total 100 Balance 100 Weight 106.594 kg Intake: Intake, IV Titration 100 Amount Calcium Gluconate in NaCl 100 2 gm In Saline 1 100ml. bag @ 100 mls/hr IVPB ONCE ONE Rx#:[id number] Other: Voiding Method Toilet # Voids 1 2 - Labs CBC & Chem 7: 05/03/23 07:55 05/03/23 07:55 Labs: Abnormal Lab Results - Last 24 Hours (Table) 05/02/23 05/02/23 05/02/23 Range/Units 12:44 17:10 18:33 WBC 10.9 H (3.8-10.6) k/uL RBC 3.22 L (4.30-5.90) m/uL Hgb 11.0 L (13.0-17.5) gm/dL Hct 33.3 L (39.0-53.0) % MCV 103.5 H (80.0-100.0) fL Neutrophils # (1.3-7.7) k/uL Lymphocytes # (1.0-4.8) k/uL PT 13.0 H (10.0-12.5) sec INR 1.2 H (<1.2) APTT 34.4 H (22.0-30.0) sec Sodium (137-145) mmol/L BUN (9-20) mg/dL Creatinine (0.66-1.25) mg/dL Glucose (74-99) mg/dL POC Glucose (mg/dL) 340 H (70-110) mg/dL Hemoglobin A1c (<=6.0) % 05/02/23 05/02/23 05/03/23 Range/Units 18:33 20:20 06:48 WBC (3.8-10.6) k/uL RBC (4.30-5.90) m/uL Hgb (13.0-17.5) gm/dL Hct (39.0-53.0) % MCV (80.0-100.0) fL Neutrophils # (1.3-7.7) k/uL Lymphocytes # (1.0-4.8) k/uL PT (10.0-12.5) sec INR (<1.2) APTT (22.0-30.0) sec Sodium 132 L (137-145) mmol/L BUN 30 H (9-20) mg/dL Creatinine 1.27 H (0.66-1.25) mg/dL Glucose 324 H (74-99) mg/dL POC Glucose (mg/dL) 311 H 219 H (70-110) mg/dL Hemoglobin A1c (<=6.0) % 05/03/23 05/03/23 05/03/23 Range/Units 07:55 07:55 07:55 WBC 10.9 H (3.8-10.6) k/uL RBC 2.99 L (4.30-5.90) m/uL Hgb 10.2 L (13.0-17.5) gm/dL Hct 30.3 L (39.0-53.0) % MCV 101.6 H (80.0-100.0) fL Neutrophils # 9.4 H (1.3-7.7) k/uL Lymphocytes # 0.9 L (1.0-4.8) k/uL PT (10.0-12.5) sec INR (<1.2) APTT (22.0-30.0) sec Sodium 135 L (137-145) mmol/L BUN 29 H (9-20) mg/dL Creatinine (0.66-1.25) mg/dL Glucose 181 H (74-99) mg/dL POC Glucose (mg/dL) (70-110) mg/dL Hemoglobin A1c 8.8 H (<=6.0) % 05/03/23 Range/Units 11:29 WBC (3.8-10.6) k/uL RBC (4.30-5.90) m/uL Hgb (13.0-17.5) gm/dL Hct (39.0-53.0) % MCV (80.0-100.0) fL Neutrophils # (1.3-7.7) k/uL Lymphocytes # (1.0-4.8) k/uL PT (10.0-12.5) sec INR (<1.2) APTT (22.0-30.0) sec Sodium (137-145) mmol/L BUN (9-20) mg/dL Creatinine (0.66-1.25) mg/dL Glucose (74-99) mg/dL POC Glucose (mg/dL) 241 H (70-110) mg/dL Hemoglobin A1c (<=6.0) % Microbiology - Last 24 Hours (Table) 05/02/23 17:28 Gram Stain - Preliminary Sputum
== END 2023-05-03 14:37 | disposition home or self-care (01) | DRG 555 ==
LOC: EC 08:59 → 4SSUR 13:47
PROVIDERS: ADMIT Internal Medicine; ATTEND Internal Medicine
DX: M79.81 Nontraumatic hematoma of soft tissue (principal); J18.9 Pneumonia, unspecified organism; N17.9 Acute kidney failure, unspecified; E11.65 Type 2 diabetes mellitus with hyperglycemia; D50.9 Iron deficiency anemia, unspecified; D53.9 Nutritional anemia, unspecified; I48.0 Paroxysmal atrial fibrillation; E87.5 Hyperkalemia; I25.10 Atherosclerotic heart disease of native coronary artery without angina pectoris; N40.0 Benign prostatic hyperplasia without lower urinary tract symptoms; Z79.01 Long term (current) use of anticoagulants; Z79.899 Other long term (current) drug therapy; Z96.653 Presence of artificial knee joint, bilateral
CPT/HCPCS: 36415; 71046; 74177; 80048; 80053; 82150; 83036; 83605; 83690; 85025; 85027; 85610; 85730; 87040; 87070; 87205; 87449; 87636; 93005; 94640; 96365; 96366; 96367; 96368; 96375; 99285